=== PATIENT | male | born 1950 | race Caucasian/White ===

== ENCOUNTER 2016-10-19 13:44 | Emergency (ER) | payer MEDICARE, BC ==
[~2016-10-19] VITALS: Ht 165.1 cm; Wt 90.3 kg
[2016-10-19] MEDS ORDERED: HYDROCODONE/APAP 5/325MG 1 EACH TABLET PO ONE (15:00)
[2016-10-19] MEDS ORDERED: HYDROCODONE/APAP 5/325MG 1 EACH TABLET ONE (15:01)
[2016-10-19 16:12] VITALS: BP 148/81
== END 2016-10-19 16:13 | disposition home or self-care (01) ==
LOC: ER 13:45
DX: S43.101A Unspecified dislocation of right acromioclavicular joint, initial encounter (principal); F32.9 Major depressive disorder, single episode, unspecified; E78.00 Pure hypercholesterolemia, unspecified; W01.0XXA Fall on same level from slipping, tripping and stumbling without subsequent striking against object, initial encounter; Y93.89 Activity, other specified; Y92.89 Other specified places as the place of occurrence of the external cause; Y99.9 Unspecified external cause status
CPT/HCPCS: 73030; 99284; A4606; Z7610

== ENCOUNTER 2017-06-12 23:20 | Emergency (ER) | payer MEDICARE, BC ==
[~2017-06-12] VITALS: Ht 165.1 cm; Wt 86.2 kg
--- NOTE | 2017-06-12 23:30 | NUR ---
TO BED 8 A 67 YO MALE BIB C/O LEFT SIDE ABD PAIN X 1 WK, WORSE TODAY. LAST BM YESTERDAY. AAOX4, AMBULATORY WITH STEADY GAIT, VSS, NAD NOTED. BREATHING EVEN AND UNLABORED. GOWNED. SAFETY AND COMFORT MEASURES RENDERED. AWAITING FOR ER MD MOSHER.
--- NOTE | 2017-06-13 00:15 | NUR ---
STARTED A SALINE LOCK ON THE RIGHT HAND G20, BLOOD DRAWN AND SENT TO LAB.
--- NOTE | 2017-06-13 00:27 | NUR ---
MEDICATED PATIENT ORDERED BY DR BHAT.
[2017-06-13 00:28] LABS: BASOPHILS # (AUTO) 0.1 /CMM (0.0-0.2); BASOPHILS % (AUTO) 0.7 % (0.0-2.0); EOSINOPHILS # (AUTO) 0.2 /CMM (0.0-0.7); HEMATOCRIT 32 % (39-51); HEMOGLOBIN 10.4 g/dL (13.5-17.5); LYMPHOCYTES # (AUTO) 2.1 /CMM (0.8-4.8); MEAN CORPUSCULAR HEMOGLOBIN 30 PG (26.0-33.0); MEAN CORPUSCULAR HGB CONC 32 g/dl (31.0-36.0); MEAN CORPUSCULAR VOLUME 94 fL (80-96); MONOCYTES # (AUTO) 0.5 /CMM (0.1-1.30); NEUTROPHILS # (AUTO) 7.2 /CMM (1.8-8.9); NEUTROPHILS % (AUTO) 71.3 % (43.0-81.0); PLATELET COUNT (AUTO) 371 /CMM (150-450); RDW COEFFICIENT OF VARIATION 16.5 (11.5-15.0); RED BLOOD CELL COUNT(AUTO) 3.44 MIL/uL (4.5-6.0); WHITE BLOOD COUNT (AUTO) 10.1 K/uL (4.3-11.0)
[2017-06-13 00:39] LABS: CALCIUM, SERUM 9.1 mg/dL (8.5-10.1); CREATININE 0.9 mg/dL (0.6-1.3); POTASSIUM 4.2 mmol/L (3.5-5.1)
[2017-06-13 00:44] LABS: ALBUMIN 3.4 g/dL (3.4-5.0); BILIRUBIN,TOTAL 0.4 mg/dL (0.2-1.0); TOTAL PROTEIN, SERUM 7.3 g/dL (6.4-8.2)
--- NOTE | 2017-06-13 02:15 | NUR ---
CALLED MAY TO EXPEDITE CT REPORT.
--- NOTE | 2017-06-13 02:37 | NUR ---
Patient still unable to provide urine. Dr Littlejohn notified.
--- NOTE | 2017-06-13 03:06 | NUR ---
IV removed. Catheter intact and site benign. Pressure and 4x4 applied to site. No bleeding noted. Patient discharged to home in stable condition. Written and verbal after care instructions given. Patient verbalizes understanding of instruction. Patient wheeled to private car, instructed not to drive. Accompanied by . No further complaints.
[2017-06-13 03:07] VITALS: BP 140/75
== END 2017-06-13 03:08 | disposition home or self-care (01) ==
LOC: ER 23:23
DX: R10.9 Unspecified abdominal pain (principal); D64.9 Anemia, unspecified; E78.00 Pure hypercholesterolemia, unspecified; E78.5 Hyperlipidemia, unspecified; F41.9 Anxiety disorder, unspecified; F32.9 Major depressive disorder, single episode, unspecified; J45.909 Unspecified asthma, uncomplicated; Z96.612 Presence of left artificial shoulder joint; Z96.643 Presence of artificial hip joint, bilateral; Z98.890 Other specified postprocedural states
CPT/HCPCS: 36415; 71010-TC; 80048-TC; 80076-TC; 83690-TC; 85025-TC; A4606; J2270; J2405; Z7610